=== PATIENT | female | born 1940 | race Caucasian/White ===

== ENCOUNTER 2016-08-04 14:19 | Observation (INO) | payer MEDICARE, OTHER ==
[~2016-08-04] VITALS: Ht 167.6 cm; Wt 108.9 kg
[~2016-08-04 14:19] MED LIST: ACETAMINOPHEN650 M1 PO; ALBUTEROL2.5 MG/3 M INH; ASPIR-LOW81 MG PO; AZITHROMYCIN500 MG PO; DULERA 200 MCG8.8 GM INH; FUROSEMIDE40 MG PO; IMDUR ER TAB 3030 MG PO; INCRUSE ELLI62.5 MCG INH; KLOR-CON M2020 MEQ PO; LEVAQUIN250 MG PO; LEVOTHYROXINE150 MCG PO; LIPITOR TAB 2020 MG PO; MEDROL DOSEPAK 24 MG PO; METOPROLOL TART25 MG PO; NEURONTIN 300300 MG PO; NORVASC 5 MG TAB5 MG PO; OMEGA 3 1,0001 EACH PO; PAROXETINE HCL40 MG PO; PLAQUENIL 200200 MG PO; PLAVIX 75 MG TA75 MG PO; PREDFORTE OP SUS5 ML OP; PROVENTIL HFA 61 INH INH; SPIRIVA RESPIMAT4 GM INH; SYMBICORT 16010.2 GM INH; VENTOLIN HFA 66.7 GM INH; ZANTAC150 MG PO
[2016-08-04 21:03] LABS: HEMOGLOBIN 13.1 gm/dl (12.3-15.3); RED BLOOD COUNT 4.32 M/UL (4.00-5.10); WHITE BLOOD COUNT 5.6 K/UL (4.5-11.0)
[2016-08-05] MEDS ORDERED: PEPCID40 MG PO (08:11)
[2016-08-05] MEDS ORDERED: VITAMIN D50000 UNIT PO (08:12)
[2016-08-05] MEDS ORDERED: VENTOLIN HFA 66.7 GM INH (08:12)
[2016-08-05] MEDS ORDERED: VOLTAREN100 GM TP (08:12)
[2016-08-06] MEDS ORDERED: COREG 12.5MG12.5 MG PO (15:46)
[2016-11-13] MEDS ORDERED: LOPRESSOR 25 MG25 MG PO (02:56)
[2016-11-13] MEDS ORDERED: NORVASC 5 MG TAB5 MG PO (02:57)
[2016-11-13] MEDS ORDERED: VITAMIN D350000 UNIT PO (02:58)
[2016-11-13] MEDS ORDERED: INCRUSE ELLI62.5 MCG INH (02:59)
[2016-11-13] MEDS ORDERED: ANTIVERT 25MG T25 MG PO (17:53)
[2016-11-13] MEDS ORDERED: COREG 3.125M3.125 MG PO (17:54)
== END 2016-08-06 16:40 | disposition home or self-care (01) ==
LOC: ER1 14:19 → ZEROF 08-05 04:32 → MED SURG 4 08-05 04:32
PROVIDERS: Emergency Medicine; Internal Medicine Infectious Disease; ADMIT Internal Medicine
DX: J44.9 Chronic obstructive pulmonary disease, unspecified (principal); R55 Syncope and collapse; I49.3 Ventricular premature depolarization; I25.10 Atherosclerotic heart disease of native coronary artery without angina pectoris; E87.6 Hypokalemia; E78.5 Hyperlipidemia, unspecified; I73.9 Peripheral vascular disease, unspecified; E03.9 Hypothyroidism, unspecified; I13.0 Hypertensive heart and chronic kidney disease with heart failure and stage 1 through stage 4 chronic kidney disease, or unspecified chronic kidney disease; E11.22 Type 2 diabetes mellitus with diabetic chronic kidney disease; N18.3 Chronic kidney disease, stage 3 (moderate); I50.30 Unspecified diastolic (congestive) heart failure; Z87.891 Personal history of nicotine dependence; Z82.3 Family history of stroke; Z80.8 Family history of malignant neoplasm of other organs or systems; Z82.49 Family history of ischemic heart disease and other diseases of the circulatory system; Z88.0 Allergy status to penicillin; Z91.041 Radiographic dye allergy status; Z79.02 Long term (current) use of antithrombotics/antiplatelets; Z79.899 Other long term (current) drug therapy; Z90.49 Acquired absence of other specified parts of digestive tract; Z95.1 Presence of aortocoronary bypass graft; Z98.890 Other specified postprocedural states
CPT/HCPCS: 36415; 36600; 71020; 80048; 80053; 82550; 82553; 82803; 83690; 83735; 83874; 83880; 84443; 84484; 85025; 85610; 85730; 93005; 94640; 94664; 96361; 96374; 96376; 99284; G0378; J2920; J2930; J7030

== ENCOUNTER → 2016-08-29 | Outpatient (CLI) | payer MEDICARE, OTHER ==
[~2016-08-29] MED LIST changes: +ANTIVERT 25MG T25 MG PO; +COREG 12.5MG12.5 MG PO; +COREG 3.125M3.125 MG PO; +LOPRESSOR 25 MG25 MG PO; +PEPCID40 MG PO; +VITAMIN D350000 UNIT PO; +VITAMIN D50000 UNIT PO; +VOLTAREN100 GM TP
== END ==
LOC: HEART 5 10:00
DX: I49.9 Cardiac arrhythmia, unspecified (principal)

== ENCOUNTER 2020-10-26 23:23 | Inpatient (IN) | payer MEDICARE, OTHER ==
[~2020-10-26] VITALS: Ht 165.1 cm; Wt 93.4 kg
[~2020-10-26 23:23] MED LIST changes: +ACETAMINOPHEN-1 EAC1 PO; +ASPIRIN CHEWABL81 MG PO; +CLINDAMYCIN HC300 MG PO; +DAILY VITE1 EACH PO; +ELIQUIS2.5 MG PO; +FISH OIL 1,0001 EACH PO; +IPRAT-ALBUT 0.5-3 ML INH; +IPRAT-ALBUT 0.5-3 ML NEB; +K-DUR TAB 10 M10 MEQ PO; +LASIX40 MG PO; +LEVAQUIN500 MG PO; +LEVAQUIN750 MG PO; +LEVOTHYROXINE137 MCG PO; -LIPITOR TAB 2020 MG PO; +OMEGA-31000 MG PO; +PANTOPRAZOLE SO40 MG PO; -PAROXETINE HCL40 MG PO; +PREDNISONE 20 M20 MG PO; +PREDNISONE10 MG PO; +PROVENTIL HFA6.7 GM INH; +ROBITUSSIN100 MG/53 PO; +SYMBICORT 80-41 INHA INH; +TYLENOL ARTHRITIS PO; +VENTOLIN/PROVE0.5 ML INH; +VITAMIN D 11000 UNIT PO; +VITAMIN D250000 UNIT PO; +ZOFRAN4 MG PO
[2020-10-27 00:08] LABS: HEMOGLOBIN 11.6 gm/dl (12.3-15.3); RED BLOOD COUNT 4.12 M/UL (4.00-5.10)
[2020-10-27 00:19] LABS: BUN/CREATININE RATIO 9 (0-10)
[2020-10-27] MEDS ORDERED: SINGULAIR10 MG PO (01:53)
[2020-10-27] MEDS ORDERED: CARVEDILOL6.25 MG PO (10:25)
[2020-10-27] MEDS ORDERED: HYDROXYCHLOROQ200 MG PO (10:27)
[2020-10-27] MEDS ORDERED: VOLTAREN ARTHRI20 GM TOP (10:29)
[2020-10-27] MEDS ORDERED: XIIDRA 5% EYE DROPS EYEBOTH (10:31)
[2020-10-27] MEDS ORDERED: PAROXETINE HCL40 MG PO (10:32)
[2020-10-27] MEDS ORDERED: ATORVASTATIN CA40 MG PO (10:33)
[2020-10-27] MEDS ORDERED: PILOCARPINE HCL5 MG PO (10:35)
[2020-10-28 03:16] LABS: HEMOGLOBIN 11.4 gm/dl (12.3-15.3); WHITE BLOOD COUNT 6.8 K/UL (4.5-11.0)
[2020-10-28 05:53] LABS: BUN/CREATININE RATIO 12 (0-10)
[2020-10-29 04:16] LABS: HEMOGLOBIN 11.9 gm/dl (12.3-15.3); RED BLOOD COUNT 4.26 M/UL (4.00-5.10); WHITE BLOOD COUNT 5.2 K/UL (4.5-11.0)
[2020-10-30 06:49] LABS: HEMOGLOBIN 11.3 gm/dl (12.3-15.3); RED BLOOD COUNT 4.08 M/UL (4.00-5.10)
[2020-10-30 08:15] LABS: WHITE BLOOD COUNT 9.1 K/UL (4.5-11.0)
--- NOTE | 2020-10-30 14:16 | NUR ---
PATIENT ROOM AIR SAT DROPS TO 86% ON ROOM AIR
[2020-11-01 05:18] LABS: HEMOGLOBIN 11.5 gm/dl (12.3-15.3); RED BLOOD COUNT 4.28 M/UL (4.00-5.10); WHITE BLOOD COUNT 10.8 K/UL (4.5-11.0)
[2020-11-01] MEDS ORDERED: DECADRON6 MG PO (08:44)
[2020-11-01] MEDS ORDERED: ELIQUIS 5 MG TAB5 MG PO (08:44)
[2020-11-01] MEDS ORDERED: CEFUROXIME500 MG PO (08:44)
[2020-11-01] MEDS ORDERED: BUMETANIDE1 MG PO (08:46)
[2020-11-01] MEDS ORDERED: K-DUR TAB 20 M20 MEQ PO (08:48)
[2020-11-01 14:29] LABS: ORGANISM ID Not indicated. (.); SPECIMEN SOURCE Urine (.)
[2020-11-03 13:19] LABS: STREPTOCOCCUS PNEUMONIAE AG Positive (Negative)
== END 2020-11-01 17:25 | disposition home health service (06) | DRG 177 ==
LOC: ER1 23:23 → CDU 10-27 01:58 → MED SURG 4 10-27 18:56
PROVIDERS: Emergency Medicine; Internal Medicine; Internal Medicine Pulmonary Disease; ADMIT Internal Medicine
PROC: B24BZZZ Ultrasonography of Heart with Aorta (ICD-10-PCS; 2020-10-27)
PROC: XW033E5 Introduction of Remdesivir Anti-infective into Peripheral Vein, Percutaneous Approach, New Technology Group 5 (ICD-10-PCS; principal; 2020-10-28)
PROC: 8E0ZXY6 Isolation (ICD-10-PCS; 2020-10-28)
PROC: XW033H5 Introduction of Tocilizumab into Peripheral Vein, Percutaneous Approach, New Technology Group 5 (ICD-10-PCS; 2020-10-28)
DX: U07.1 COVID-19 (principal); J12.82 Pneumonia due to coronavirus disease 2019; I50.43 Acute on chronic combined systolic (congestive) and diastolic (congestive) heart failure; J96.21 Acute and chronic respiratory failure with hypoxia; I13.0 Hypertensive heart and chronic kidney disease with heart failure and stage 1 through stage 4 chronic kidney disease, or unspecified chronic kidney disease; N17.9 Acute kidney failure, unspecified; I48.20 Chronic atrial fibrillation, unspecified; I25.5 Ischemic cardiomyopathy; N18.30 Chronic kidney disease, stage 3 unspecified; E66.9 Obesity, unspecified; I25.10 Atherosclerotic heart disease of native coronary artery without angina pectoris; E03.9 Hypothyroidism, unspecified; J44.9 Chronic obstructive pulmonary disease, unspecified; G47.33 Obstructive sleep apnea (adult) (pediatric); E78.5 Hyperlipidemia, unspecified; I27.20 Pulmonary hypertension, unspecified; M06.9 Rheumatoid arthritis, unspecified; I49.5 Sick sinus syndrome; I35.1 Nonrheumatic aortic (valve) insufficiency; Z88.0 Allergy status to penicillin; Z88.2 Allergy status to sulfonamides; Z91.041 Radiographic dye allergy status; Z79.01 Long term (current) use of anticoagulants; Z87.891 Personal history of nicotine dependence; Z95.1 Presence of aortocoronary bypass graft; Z95.810 Presence of automatic (implantable) cardiac defibrillator; Z79.890 Hormone replacement therapy; Z79.899 Other long term (current) drug therapy; Z68.33 Body mass index [BMI] 33.0-33.9, adult
CPT/HCPCS: ECHO; 36415; 36600; 71045; 80048; 80053; 80061; 82550; 82553; 82728; 82803; 83036; 83605; 83615; 83735; 83874; 83880; 84100; 84132; 84439; 84443; 84484; 85025; 85027; 85362; 85379; 85384; 85652; 86140; 87070; 87081; 87205; 87278; 87449; 87899; 93005; 93306; 94640; 94760; 96374; 96375; 96376; 97161; 97166; 97530; 97530-GP-CQ; 99285; G0378; J1100; J2185; J2405; J3475; J7030; U0002

== ENCOUNTER → 2020-11-07 | Outpatient (CLI) | payer MEDICARE, OTHER ==
[~2020-11-07] MED LIST changes: +ATORVASTATIN CA40 MG PO; +BUMETANIDE1 MG PO; +CARVEDILOL6.25 MG PO; +CEFUROXIME500 MG PO; +DECADRON6 MG PO; +ELIQUIS 5 MG TAB5 MG PO; +HYDROXYCHLOROQ200 MG PO; +K-DUR TAB 20 M20 MEQ PO; +PAROXETINE HCL40 MG PO; +PILOCARPINE HCL5 MG PO; +SINGULAIR10 MG PO; +VOLTAREN ARTHRI20 GM TOP; +XIIDRA 5% EYE DROPS EYEBOTH
== END ==
LOC: KOH-I 11:45
DX: J18.9 Pneumonia, unspecified organism (principal)
CPT/HCPCS: 71046

== ENCOUNTER → 2020-11-21 | Outpatient (CLI) | payer MEDICARE, OTHER | LOC: LBRF 13:31 | DX: N18.30 Chronic kidney disease, stage 3 unspecified (principal); N25.81 Secondary hyperparathyroidism of renal origin | CPT/HCPCS: 82570; 84156 ==

== ENCOUNTER → 2020-12-03 | Outpatient (CLI) | payer MEDICARE, OTHER | LOC: EXRD 10:20 | DX: Z87.09 Personal history of other diseases of the respiratory system (principal) | CPT/HCPCS: 71046 ==

== ENCOUNTER 2021-02-23 05:30 | Emergency (ER) | payer MEDICARE, OTHER ==
[~2021-02-23] VITALS: Ht 167.6 cm; Wt 90.7 kg
[2021-02-23 05:59] LABS: HEMOGLOBIN 10.7 gm/dl (12.3-15.3); RED BLOOD COUNT 3.73 M/UL (4.00-5.10); WHITE BLOOD COUNT 13.5 K/UL (4.5-11.0)
[2021-02-23 06:27] LABS: BUN/CREATININE RATIO 15 (0-10)
[2021-02-23] MEDS ORDERED: DOXYCYCLINE HY100 MG PO (06:42)
[2021-02-23] MEDS ORDERED: PREDNISONE20 MG PO (06:42)
[2021-02-23] MEDS ORDERED: BUMETANIDE1 MG PO (07:02)
== END 2021-02-23 10:47 | disposition home or self-care (01) ==
LOC: ER1 05:30
PROVIDERS: Family Medicine
DX: U07.1 COVID-19 (principal); J12.82 Pneumonia due to coronavirus disease 2019; J44.0 Chronic obstructive pulmonary disease with (acute) lower respiratory infection; J44.1 Chronic obstructive pulmonary disease with (acute) exacerbation; E66.01 Morbid (severe) obesity due to excess calories; I50.20 Unspecified systolic (congestive) heart failure; Z79.01 Long term (current) use of anticoagulants; I48.91 Unspecified atrial fibrillation; Z99.81 Dependence on supplemental oxygen; Z95.0 Presence of cardiac pacemaker; Z88.0 Allergy status to penicillin; Z95.1 Presence of aortocoronary bypass graft
CPT/HCPCS: 36600; 71045; 80053; 82550; 82553; 82803; 83605; 83874; 83880; 84439; 84443; 84484; 85025; 87040; 93005; 94664; 96374; 99285; J2930; M0243; U0002

== ENCOUNTER 2021-07-11 14:34 | Inpatient (IN) | payer MEDICARE, OTHER ==
[~2021-07-11] VITALS: Ht 165.1 cm; Wt 97.1 kg
[~2021-07-11 14:34] MED LIST changes: +DOXYCYCLINE HY100 MG PO; +PREDNISONE20 MG PO; +VITAMIN D21250 MCG PO
[2021-07-11 15:26] LABS: HEMOGLOBIN 11.5 gm/dl (12.3-15.3); RED BLOOD COUNT 4.07 M/UL (4.00-5.10); WHITE BLOOD COUNT 7.9 K/UL (4.5-11.0)
[2021-07-11 15:43] LABS: BUN/CREATININE RATIO 17 (0-10)
[2021-07-11 16:14] LABS: BORDETELLA PARAPERTUSSIS Not Detected (Not Detectd); BORDETELLA PERTUSSIS Not Detected (Not Detectd); CHLAMYDIA PNEUMONIAE Not Detected (Not Detectd); CORONAVIRUS HKU1 Not Detected (Not Detectd); CORONAVIRUS NL63 Not Detected (Not Detectd); CORONAVIRUS OC43 Not Detected (Not Detectd); CORONOAVIRUS 229E Not Detected (Not Detectd); HUMAN METAPNEUMOVIRUS Not Detected (Not Detectd); INFLUENZA A Not Detected (Not Detectd); INFLUENZA B Not Detected (Not Detectd); MYCOPLASMA PNEUMONIAE Not Detected (Not Detectd); PARAINFLUENZA VIRUS 1 Not Detected (Not Detectd); PARAINFLUENZA VIRUS 2 Not Detected (Not Detectd); PARAINFLUENZA VIRUS 3 Not Detected (Not Detectd); PARAINFLUENZA VIRUS 4 Not Detected (Not Detectd); RESPIRATORY SYNCYTIAL VIRUS Not Detected (Not Detectd)
[2021-07-11 17:28] LABS: HUMAN RHINOVIRUS/ENTEROVIRUS DETECTED (Not Detectd); SARS-CoV-2 NOT DETECTED (Not Detectd)
[2021-07-12 04:38] LABS: RED BLOOD COUNT 3.97 M/UL (4.00-5.10); WHITE BLOOD COUNT 5.9 K/UL (4.5-11.0)
[2021-07-12 04:56] LABS: BUN/CREATININE RATIO 12 (0-10)
[2021-07-12] MEDS ORDERED: PROTONIX 40 MG40 M1 PO (09:41)
[2021-07-12] MEDS ORDERED: POTASSIUM CHLO20 ME2 PO (09:42)
[2021-07-12] MEDS ORDERED: BUMETANIDE1 MG PO (09:42)
[2021-07-12] MEDS ORDERED: POLYMYXIN B-TMP10 ML OU (09:43)
[2021-07-12] MEDS ORDERED: IRON325 M1 PO (09:44)
[2021-07-12] MEDS ORDERED: BUDESONIDE-FO10.2 G1 INH (09:44)
[2021-07-12] MEDS ORDERED: ISOSORBIDE MONO30 MG PO (09:47)
--- NOTE | 2021-07-12 18:29 | NUR ---
PT HAS HAD FEVER DR. HARPER AWARE
[2021-07-13 05:47] LABS: RED BLOOD COUNT 4.36 M/UL (4.00-5.10)
[2021-07-13 05:51] LABS: WHITE BLOOD COUNT 22.2 K/UL (4.5-11.0)
[2021-07-13 12:12] LABS: HEMOGLOBIN 11.6 gm/dl (12.3-15.3); RED BLOOD COUNT 4.13 M/UL (4.00-5.10); WHITE BLOOD COUNT 17.1 K/UL (4.5-11.0)
[2021-07-14 03:24] LABS: HEMOGLOBIN 11.9 gm/dl (12.3-15.3); RED BLOOD COUNT 4.3 M/UL (4.00-5.10)
[2021-07-14 03:27] LABS: WHITE BLOOD COUNT 11.5 K/UL (4.5-11.0)
--- NOTE | 2021-07-14 06:17 | NUR ---
FOLLOWED UP WITH RADIOLOGY AT 2300 AND 0200 FOR RESULTS OF DOBHOFF PLACEMENT IMAGING. WAITING ON THE RESULTS TO BE CONFIRMED. TUBE FEEDING HELD AT THIS POINT. PATIENT DID NOT TOLERATE CPAP, BECAME IRRITABLE AND BEGAN PULLING AT LINES.
[2021-07-15 04:59] LABS: HEMOGLOBIN 11.7 gm/dl (12.3-15.3); RED BLOOD COUNT 4.14 M/UL (4.00-5.10); WHITE BLOOD COUNT 7.7 K/UL (4.5-11.0)
[2021-07-16 02:21] LABS: HEMOGLOBIN 11.5 gm/dl (12.3-15.3); RED BLOOD COUNT 4.15 M/UL (4.00-5.10); WHITE BLOOD COUNT 7.1 K/UL (4.5-11.0)
[2021-07-16 02:41] LABS: BUN/CREATININE RATIO 18 (0-10)
--- NOTE | 2021-07-17 00:29 | NUR ---
[birth year]29- CALLED REPORT TO KATHIE AT [facility] 5A FLOOR AT [phone]. 1939- FAXED OVER PCS AND PTS FACESHEET TO [facility] FOR TRANSPORT TO [facility].
== END 2021-07-16 | disposition short-term general hospital (02) | DRG 871 ==
LOC: ER1 14:34 → CDU 17:19 → MED SURG 4 17:19
PROVIDERS: Preventive Medicine Occupational Medicine; ADMIT Internal Medicine
PROC: 3E03329 Introduction of Other Anti-infective into Peripheral Vein, Percutaneous Approach (ICD-10-PCS; principal; 2021-07-11)
PROC: B24BZZZ Ultrasonography of Heart with Aorta (ICD-10-PCS; 2021-07-12)
PROC: 5A09357 Assistance with Respiratory Ventilation, Less than 24 Consecutive Hours, Continuous Positive Airway Pressure (ICD-10-PCS; 2021-07-13)
PROC: 5A09357 Assistance with Respiratory Ventilation, Less than 24 Consecutive Hours, Continuous Positive Airway Pressure (ICD-10-PCS; 2021-07-15)
PROC: 5A09357 Assistance with Respiratory Ventilation, Less than 24 Consecutive Hours, Continuous Positive Airway Pressure (ICD-10-PCS; 2021-07-15)
PROC: 5A09357 Assistance with Respiratory Ventilation, Less than 24 Consecutive Hours, Continuous Positive Airway Pressure (ICD-10-PCS; 2021-07-15)
DX: A41.9 Sepsis, unspecified organism (principal); G93.41 Metabolic encephalopathy; I50.23 Acute on chronic systolic (congestive) heart failure; J18.9 Pneumonia, unspecified organism; I13.0 Hypertensive heart and chronic kidney disease with heart failure and stage 1 through stage 4 chronic kidney disease, or unspecified chronic kidney disease; R47.01 Aphasia; N39.0 Urinary tract infection, site not specified; Z20.822 Contact with and (suspected) exposure to COVID-19; R65.20 Severe sepsis without septic shock; G47.33 Obstructive sleep apnea (adult) (pediatric); I65.22 Occlusion and stenosis of left carotid artery; R47.81 Slurred speech; J01.90 Acute sinusitis, unspecified; M06.9 Rheumatoid arthritis, unspecified; I25.5 Ischemic cardiomyopathy; E03.9 Hypothyroidism, unspecified; K52.9 Noninfective gastroenteritis and colitis, unspecified; I25.10 Atherosclerotic heart disease of native coronary artery without angina pectoris; N18.9 Chronic kidney disease, unspecified; I48.91 Unspecified atrial fibrillation; Z88.0 Allergy status to penicillin; Z79.01 Long term (current) use of anticoagulants; Z79.82 Long term (current) use of aspirin; Z95.1 Presence of aortocoronary bypass graft; Z95.810 Presence of automatic (implantable) cardiac defibrillator; Z82.49 Family history of ischemic heart disease and other diseases of the circulatory system; Z88.2 Allergy status to sulfonamides; Z91.041 Radiographic dye allergy status
CPT/HCPCS: ECHO; 36415; 36600; 70450; 71045; 74018; 74230; 80048; 80053; 80202; 81001; 82009; 82140; 82533; 82550; 82553; 82607; 82803; 83036; 83605; 83690; 83735; 83880; 84100; 84439; 84443; 84484; 85025; 85652; 86140; 87040; 87070; 87081; 87086; 87205; 87633; 92526; 92610; 92611-GN; 93306; 93880; 94640; 94660; 94664; 94760; 96374; 96375; 97110-GP-CQ; 97162; 97166; 97530; 97530-GP-CQ; 99285; J0696; J1335; J1940; J2185; J2405; J3370; J3475; J7030; J7070

== ENCOUNTER → 2021-09-24 | Outpatient (CLI) | payer MEDICARE, OTHER ==
[~2021-09-24] MED LIST changes: +BUDESONIDE-FO10.2 G1 INH; +IRON325 M1 PO; +ISOSORBIDE MONO30 MG PO; +POLYMYXIN B-TMP10 ML OU; +POTASSIUM CHLO20 ME2 PO; +PROTONIX 40 MG40 M1 PO
== END ==
LOC: RAD 16:40
DX: R05.9 Cough, unspecified (principal); J98.4 Other disorders of lung
CPT/HCPCS: 71046